=== PATIENT | female | born 1990 | race African-American/Black ===

== ENCOUNTER 2016-09-02 21:24 | Emergency (ER) | payer MEDICAID ==
[~2016-09-02] VITALS: Ht 172.7 cm; Wt 113.4 kg
--- NOTE | 2016-09-02 21:24 | NUR ---
[facility]
[2016-09-02 21:26] VITALS: BP 115/70
--- NOTE | 2016-09-02 21:30 | NUR ---
PT BIB [facility] FOR PREBOOK, WITH ANXIETY AND DEPRESSION, Pupils equal and reactive to light bilaterally. No facial droop noted. No smile deficit noted. Speech normal for patient. Patient is alert and oriented to person, place, time and event. Bilateral hand night shift equal. Bilateral foot push equal.
--- NOTE | 2016-09-02 21:49 | NUR ---
Dr. Garrido evaluating patient
[2016-09-02 21:55] VITALS: BP 111/69
--- NOTE | 2016-09-02 21:55 | NUR ---
Patient discharged with v/s stable. Written and verbal after care instructions given and explained. Patient alert, oriented and verbalized understanding of instructions. Police with in custody. All questions addressed prior to discharge. ID band removed. Patient advised to follow up with PMD.NONE Rx given. Patient educated on indication of medication including possible reaction and side effects. Opportunity to ask questions provided and answered.
== END 2016-09-02 21:55 ==
LOC: MED 21:24
DX: Z02.89 Encounter for other administrative examinations (principal)
CPT/HCPCS: 99283